=== PATIENT | male | born 1975 | race Two or more races ===

== ENCOUNTER → 2024-05-29 | Outpatient (CLI) | payer MEDICAID, SELFPAY ==
--- NOTE | 2024-05-29 11:24 | XR_ITS ---
Examination: Right elbow 2 views Technique one AP lateral right elbow 2 views Exam date and time: May 29, 2024 1205 hours INDICATIONS: Work injury to the elbow today, elbow pain FINDINGS: No fracture or dislocation No elbow effusion IMPRESSION: No fracture or dislocation
--- NOTE | 2024-05-29 11:24 | XR_ITS ---
Examination: Hand, right 3 views Technique: Hand AP, oblique, lateral 3 views Date and time of exam: May 29, 2024 1159 hours INDICATIONS: Work injury to the hand 3 months ago with persistent hand pain FINDINGS: Healed fracture distal fifth metacarpal No foreign body No acute fracture IMPRESSION: Healed fracture distal fifth metacarpal
== END | disposition home or self-care (01) ==
PROVIDERS: Referring Provider Orthopaedic Surgery; Visit Provider Orthopaedic Surgery
DX: S62.306A Unspecified fracture of fifth metacarpal bone, right hand, initial encounter for closed fracture (principal); X58.XXXA Exposure to other specified factors, initial encounter; S59.901A Unspecified injury of right elbow, initial encounter
CPT/HCPCS: 73070; 73130